=== PATIENT | female | born 1960 | race African-American/Black ===

== ENCOUNTER 2022-07-11 06:02 | Emergency (ER) | payer SELFPAY ==
[2022-07-11 06:09] VITALS: BP 157/91; PULSE 84; RESP 16; TEMP 98.1; BMI 30.9
[2022-07-11] MEDS ORDERED: ASPIRIN 325 MG TABLET PO ONE (06:43)
[2022-07-11] MEDS ORDERED: ASPIRIN 325 MG TABLET ONE (06:50)
[2022-07-11 08:07] LABS: HEMATOCRIT 41.6 % (32.4-45.2); HEMOGLOBIN 14.1 G/dL (10.7-15.3); MCH 33.5 pg (25.7-33.7); MCHC 33.8 g/dl (32.0-36.0); MEAN CELL VOLUME 99.1 fl (80-96); MEAN PLT VOLUME 9.5 fl (7.5-11.1); PLATELET COUNT 256.2 10^3/uL (134-434); RDW 13.4 % (11.6-15.6); WHITE BLOOD COUNT 10.5 10^3/uL (4.0-10.8)
[2022-07-11 08:22] LABS: ALBUMIN 3.9 g/dl (3.4-5.0); BILIRUBIN,TOTAL 0.5 mg/dl (0.2-1); CALCIUM 9.1 mg/dl (8.5-10); CREATININE 0.8 mg/dl (0.55-1.3); TOT PROT 7.2 g/dl (6.4-8.2)
== END 2022-07-11 09:51 | disposition home or self-care (01) ==
LOC: FER 06:02
DX: R07.9 Chest pain, unspecified (principal)
CPT/HCPCS: 36415; 71045-TC-FY; 80053; 82550; 84484; 85027; 93005; 99285-25